=== PATIENT | male | born 1950 | race Caucasian/White ===

== ENCOUNTER 2016-10-11 12:51 | Emergency (ER) | payer OTHER ==
[~2016-10-11] VITALS: Wt 100.0 kg
[~2016-10-11 12:51] MED LIST: LISI10TA2 PO; METO25TA7 PO; NAPROSYN; OMEP20CA16 PO
[2016-10-11] MEDS ORDERED: ACET325T33 PO (13:24)
[2016-10-11] MEDS ORDERED: AZIT250T94 PO (13:24)
[2016-10-11] MEDS ORDERED: AZITHROMYCIN 250 MG TAB PO ONE (13:30)
[2016-10-11] MEDS ORDERED: ACETAMINOPHEN 325 MG TAB PO ONE (13:30)
--- NOTE | 2016-10-11 17:44 | ERD ---
ER Documentation Chief Complaint Date/Time DATE: 10/11/16 TIME: 17:43 Chief Complaint cough bilateral ear pain headache and sore throat for the past 5 days HPI Patient is a 66-year-old male with hypertension who presents with cough. The patient said he started with a cold 1 month ago but it came back. He said that his brother has pneumonia. He has had cough and fever. He is speaking in full sentences. His fever is been there for the past 3 days. He went to his primary doctor but there was no appointment available. He said that he has been coughing up brown phlegm. His primary doctor is Dr. Benedict Henry. ROS All systems reviewed and are negative except as per history of present illness. Medications Home Meds Active Scripts Acetaminophen* (Tylenol*) 325 Mg Tablet, 2 TAB PO Q8 Y for PAIN AND OR ELEVATED TEMP, #20 TAB Prov:NIKITA GUERRERO MD 10/11/16 Azithromycin* (Zithromax*) 250 Mg Tablet, 250 MG PO DAILY for 4 Days, TAB Prov:NIKITA GUERRERO MD 10/11/16 Lisinopril* (Lisinopril*) 10 Mg Tablet, 20 MG PO BID, #60 TAB Prov:BRITNEY KAMARA NP 10/25/14 Reported Medications [Naprosyn] No Conflict Check 06/27/16 Omeprazole* (Omeprazole*) 20 Mg Capsule.dr, 20 MG PO AC BREAKFAST, CAP 10/21/14 Metoprolol Succinate* (Toprol XL*) 25 Mg Tab.sr.24h, 25 MG PO DAILY, TAB 10/21/14 Allergies Allergies: Coded Allergies: pseudoephedrine (Verified Adverse Reaction, Intermediate, 02/23/15) PMhx/Soc History of Surgery: Yes (TONSILLECTOMY, RADIACAL MASTOIDECTOMY) Anesthesia Reaction: No Hx Neurological Disorder: No Hx Respiratory Disorders: No Hx Psychiatric Problems: No Hx Miscellaneous Medical Probl: No Hx Alcohol Use: No Hx Substance Use: No Hx Tobacco Use: No FmHx Family History: diabetes Physical Exam Vitals Vital Signs Date Time Temp Pulse Resp B/P Pulse Ox O2 Delivery O2 Flow Rate FiO2 10/11/16 12:53 101.1 84 22 110/71 95 Physical Exam Const: No acute distress Head: Atraumatic Eyes: Normal Conjunctiva ENT: Normal External Ears, Nose and Mouth. Neck: Full range of motion..~ No meningismus. Resp: Clear to auscultation bilaterally Cardio: Regular rate and rhythm, no murmurs Abd: Soft, non tender, non distended. Normal bowel sounds Skin: No petechiae or rashes Back: No midline or flank tenderness Ext: No cyanosis, or edema Neur: Awake and alert Psych: Normal Mood and Affect Results 24 hrs Current Medications Medications (Trade) Dose Ordered Sig/Adolfo Route PRN Reason Start Time Stop Time Status Last Admin Dose Admin Azithromycin (Zithromax) 500 mg ONCE ONCE PO 10/11/16 13:30 10/11/16 13:31 DC 10/11/16 13:32 Acetaminophen (Tylenol Tab) 650 mg ONCE ONCE PO 10/11/16 13:30 10/11/16 13:31 DC 10/11/16 13:32 Procedures/MDM Patient is a 66-year-old male presents with cough and fever. I believe he likely has an acute bronchitis. His lung sounds are normal. He will be treated with 5 days of Zithromax. The patient was given the first dose in the emergency department. He did have a fever here and was given Tylenol for fever. I believe outpatient management is appropriate. He is in no respiratory distress. At this point I doubt pneumonia, pneumothorax, or pulmonary embolism. The patient will follow-up with his primary doctor within 24-48 hours. He can return sooner for any worsening symptoms. Departure Diagnosis: Primary Impression: Bronchitis Condition: Fair Patient Instructions: Bronchitis, Antiobiotic Treatment (Adult) Additional Instructions: Call your primary care doctor TOMORROW for an appointment during the next 1-2 days.See the doctor sooner or return here if your condition worsens before your appointment time. NIKITA GUERRERO MD Oct 11, 2016 17:44
== END 2016-10-11 13:54 | disposition home or self-care (01) ==
LOC: FTE 12:51
DX: J20.9 Acute bronchitis, unspecified (principal); I10 Essential (primary) hypertension
CPT/HCPCS: Z7502; Z7610; 99283

== ENCOUNTER 2017-03-02 11:36 | Emergency (ER) | payer OTHER ==
[~2017-03-02] VITALS: Wt 100.0 kg
[~2017-03-02 11:36] MED LIST changes: +ACET325T33 PO; +AZIT250T94 PO
[2017-03-02] MEDS ORDERED: LIDOCAINE 1% (MDV) 10 ML INJ INJ STA (11:59)
[2017-03-02] MEDS ORDERED: DIPHTH/TET/ACEL PERTUSS (ADULT) 0.5 ML VIAL IM ONE (12:00)
--- NOTE | 2017-03-02 12:07 | ERD ---
ER Documentation Chief Complaint Date/Time DATE: 03/02/17 TIME: 12:05 Chief Complaint LAC ON LEFT LOWER ARM NEAR WRIST AREA HPI 66-year-old male presents with laceration to his left forearm from a box car washer that occurred just prior to arrival. He is trying to open a box actually cut himself, there was some bleeding that he was able to control prior to arrival. He does not recall his last tetanus shot. He denies weakness or paresthesias. ROS All systems reviewed and are negative except as per history of present illness. Medications Home Meds Active Scripts Acetaminophen* (Tylenol*) 325 Mg Tablet, 2 TAB PO Q8 Y for PAIN AND OR ELEVATED TEMP, #20 TAB Prov:NIKITA GUERRERO MD 10/11/16 Azithromycin* (Zithromax*) 250 Mg Tablet, 250 MG PO DAILY for 4 Days, TAB Prov:NIKITA GUERRERO MD 10/11/16 Lisinopril* (Lisinopril*) 10 Mg Tablet, 20 MG PO BID, #60 TAB Prov:BRITNEY KAMARA NP 10/25/14 Reported Medications [Naprosyn] No Conflict Check 06/27/16 Omeprazole* (Omeprazole*) 20 Mg Capsule.dr, 20 MG PO AC BREAKFAST, CAP 10/21/14 Metoprolol Succinate* (Toprol XL*) 25 Mg Tab.sr.24h, 25 MG PO DAILY, TAB 10/21/14 Allergies Allergies: Coded Allergies: pseudoephedrine (Verified Adverse Reaction, Intermediate, 02/23/15) PMhx/Soc History of Surgery: Yes (TONSILLECTOMY, RADIACAL MASTOIDECTOMY) Anesthesia Reaction: No Hx Neurological Disorder: No Hx Respiratory Disorders: No Hx Psychiatric Problems: No Hx Miscellaneous Medical Probl: No Hx Alcohol Use: No Hx Substance Use: No Hx Tobacco Use: No Physical Exam Vitals Vital Signs Date Time Temp Pulse Resp B/P Pulse Ox O2 Delivery O2 Flow Rate FiO2 03/02/17 11:38 98.7 114 18 125/89 97 Physical Exam General: Well-developed, well-nourished. The patient appears in no acute distress. HEENT: Head is normocephalic, atraumatic. No scleral icterus. Neck: Supple. Nontender. Lungs: Clear to auscultation. Normal air movement. Heart: Regular rate and rhythm. S1 and S2 are normal. No murmurs, gallops, or rubs. Abdomen: Nondistended. Extremities: 2.5 cm linear laceration of the left distal forearm. There is no atrophy, there is no evidence of foreign bodies. Depth is approximately 4 mm, no muscle, tendon injury. Neurologic: Alert and oriented 3. No focal deficits. Normal speech and gait. Skin: Normal turgor. No rash or lesions. Results 24 hrs Current Medications Medications (Trade) Dose Ordered Sig/Adolfo Route PRN Reason Start Time Stop Time Status Last Admin Dose Admin Diphtheria/ Tetanus/Acell Pertussis (Adacel) 0.5 ml ONCE ONCE IM 03/02/17 12:00 03/02/17 12:01 DC 03/02/17 12:17 Lidocaine HCl (Lidocaine 1% (Mdv) 10 ml) 10 ml ONCE STAT INJ 03/02/17 11:59 03/02/17 12:00 DC Procedures/MDM Laceration Repair by me: Patient was verbally consented Anesthesia: 1% lidocaine locally Location: Left forearm Tendon/Joint/Nerves: No injury Foreign body: None detected after copious irrigation and exploration Technique: Simple Interrupted Sutures 4 using 4- 0 Prolene Complexity: No subcutaneous sutures/mucosal repair/ edge excision Post Closure Length: 2.5 cm Patient's bleeding was easily controlled in the department and there is no indication of anemia. No evidence of compartment syndrome, neurologic injury, vascular injury, open joint, tendon laceration, or foreign body. Patient is appropriate for outpatient follow up. 48 hour wound check. Scar minimization instructions given. Patient's blood pressure was elevated (>120/80) but appears stable without evidence of hypertension emergency or urgency. The patient was counseled about the risks of hypertension and urged to pursue outpatient monitoring and therapy within a week with their primary care physician. Departure Diagnosis: Primary Impression: Laceration Condition: BRYAN Rivera PA-C Mar 02, 2017 12:07
== END 2017-03-02 12:25 | disposition home or self-care (01) ==
LOC: FTE 11:36
DX: S51.812A Laceration without foreign body of left forearm, initial encounter (principal); W27.5XXA Contact with paper-cutter, initial encounter; Y92.9 Unspecified place or not applicable; Z23 Encounter for immunization
CPT/HCPCS: 90471; 90715

== ENCOUNTER 2017-03-09 14:43 | Emergency (ER) | payer OTHER ==
[~2017-03-09] VITALS: Wt 120.0 kg
--- NOTE | 2017-03-09 15:25 | ERD ---
ER Documentation Chief Complaint Date/Time DATE: 03/09/17 TIME: 15:24 Chief Complaint SUTURE REMOVAL HPI 66-year-old male presents for evaluation for suture removal on the left forearm laceration sustained 1 week ago with a box maker paperboard. Patient complains of no fever, redness, bleeding and feels that his wound is healing appropriately. ROS All systems reviewed and are negative except as per history of present illness. Medications Home Meds Active Scripts Acetaminophen* (Tylenol*) 325 Mg Tablet, 2 TAB PO Q8 Y for PAIN AND OR ELEVATED TEMP, #20 TAB Prov:NIKITA GUERRERO MD 10/11/16 Azithromycin* (Zithromax*) 250 Mg Tablet, 250 MG PO DAILY for 4 Days, TAB Prov:NIKITA GUERRERO MD 10/11/16 Lisinopril* (Lisinopril*) 10 Mg Tablet, 20 MG PO BID, #60 TAB Prov:BRITNEY KAMARA NP 10/25/14 Reported Medications [Naprosyn] No Conflict Check 06/27/16 Omeprazole* (Omeprazole*) 20 Mg Capsule.dr, 20 MG PO AC BREAKFAST, CAP 10/21/14 Metoprolol Succinate* (Toprol XL*) 25 Mg Tab.sr.24h, 25 MG PO DAILY, TAB 10/21/14 Allergies Allergies: Coded Allergies: pseudoephedrine (Verified Adverse Reaction, Intermediate, 02/23/15) PMhx/Soc History of Surgery: Yes (TONSILLECTOMY, RADIACAL MASTOIDECTOMY) Anesthesia Reaction: No Hx Neurological Disorder: No Hx Respiratory Disorders: No Hx Psychiatric Problems: No Hx Miscellaneous Medical Probl: No Hx Alcohol Use: No Hx Substance Use: No Hx Tobacco Use: No Physical Exam Vitals Vital Signs Date Time Temp Pulse Resp B/P Pulse Ox O2 Delivery O2 Flow Rate FiO2 03/09/17 14:44 98.0 78 18 123/71 99 Physical Exam Const: [] Letter, [id number] per Head: Atraumatic Eyes: Normal Conjunctiva ENT: Normal External Ears, Nose and Mouth. Neck: Full range of motion..~ No meningismus. Resp: Clear to auscultation bilaterally Cardio: Regular rate and rhythm, no murmurs Abd: Soft, non tender, non distended. Normal bowel sounds Skin: No petechiae or rashes. Healing laceration on the left forearm without erythema, bleeding or discharge. Back: No midline or flank tenderness Ext: No cyanosis, or edema Neur: Awake and alert Psych: Normal Mood and Affect Procedures/MDM Sutures were removed without complications. Steri-Strips applied. Patient has a satisfactorily appearing healing wound on his left forearm without evidence of infection or complications. Discharged home instructions for wound care instructions return for fevers, redness, new worsening symptoms. Departure Diagnosis: Primary Impression: Encounter for removal of sutures Condition: Stable Patient Instructions: Suture Removal, No Complication Additional Instructions: Recheck for redness, swelling, new worsening symptoms. TYRESE RAYA MD Mar 09, 2017 15:25
== END 2017-03-09 15:35 | disposition home or self-care (01) ==
LOC: FTE 14:43
DX: Z48.02 Encounter for removal of sutures (principal)
CPT/HCPCS: 99281

== ENCOUNTER 2018-06-29 10:44 | Emergency (ER) | END 2018-06-29 13:55 | disposition home or self-care (01) ==